=== PATIENT | female | born 1945 | race Caucasian/White ===

== ENCOUNTER 2021-02-16 08:57 | Outpatient (CLI) | payer MEDICARE, BC | END 2021-02-16 08:58 | disposition home or self-care (01) | LOC: BICMAMMO 08:57 | PROVIDERS: ATTEND Nurse Practitioner Family | DX: Z12.31 Encounter for screening mammogram for malignant neoplasm of breast (principal) | CPT/HCPCS: 77063; 77067 ==

== ENCOUNTER 2021-02-23 07:57 | Outpatient (CLI) | payer MEDICARE, BC ==
[2021-02-23] MEDS ORDERED: Iopamidol 370 76% 100 ML VIAL ONE (11:17)
== END 2021-02-23 07:58 | disposition home or self-care (01) ==
LOC: CT 07:57
PROVIDERS: ATTEND Internal Medicine Cardiovascular Disease
DX: I65.23 Occlusion and stenosis of bilateral carotid arteries (principal); I65.03 Occlusion and stenosis of bilateral vertebral arteries
CPT/HCPCS: 70498

== ENCOUNTER 2021-03-11 08:00 | Inpatient (IN) | payer MEDICARE, BC ==
[2021-03-15] MEDS ORDERED: ceFAZolin 2 GM/DEX 5% 100 ML BAG ONE (08:13)
[2021-03-15] MEDS ORDERED: Fentanyl 100 MCG/2 ML VIAL ONE (08:39)
[2021-03-15] MEDS ORDERED: Protamine Sulfate 50 MG/5 ML VIAL ONE (09:46)
[2021-03-15] MEDS ORDERED: Heparin 5,000 UNITS/ML VIAL ONE (09:46)
[2021-03-15] MEDS ORDERED: Dexamethasone 4 mg/ml Vial ONE (09:46)
[2021-03-15] MEDS ORDERED: EPINEPHrine 1 MG/ML AMP ONE (09:46)
[2021-03-15] MEDS ORDERED: Bupivacaine PF 0.5% 30 ML VIAL ONE (09:46)
[2021-03-15] MEDS ORDERED: PROPOFOL 200 MG/20 ML VIAL ONE (10:21)
[2021-03-15] MEDS ORDERED: Rocuronium Bromide 10 MG/ML (10ML VIAL) ONE (10:21)
[2021-03-15] MEDS ORDERED: Dexamethasone 20 MG/5 ML VIAL ONE (10:21)
[2021-03-15] MEDS ORDERED: Lidocaine 1% PF 5 ML VIAL ONE (10:21)
[2021-03-15] MEDS ORDERED: Ondansetron PF 4 MG/2 ML Vial ONE (10:21)
[2021-03-15] MEDS ORDERED: Glycopyrrolate 0.2 MG/ML 5 ML SYRINGE ONE (10:21)
[2021-03-15] MEDS ORDERED: DOPamine 400 MG/D5W 250 ML 250 ML ONE (10:35)
[2021-03-15] MEDS ORDERED: hydrALAZINE 20 MG/ML VIAL SLOW IVP PRN (12:59)
[2021-03-15] MEDS ORDERED: Acetaminophen 325 MG TAB PO PRN (12:59)
[2021-03-15] MEDS ORDERED: Nitroglycerin 50 MG/250 ML BOT 250 ML IVPB PRN (12:59)
[2021-03-15] MEDS ORDERED: Ondansetron PF 4 MG/2 ML Vial IVP PRN (12:59)
[2021-03-15] MEDS ORDERED: traMADol HCl 50 MG TAB PO PRN ×2 (12:59)
[2021-03-15] MEDS ORDERED: Promethazine HCl 25 MG/ML VIAL IM PRN (12:59)
[2021-03-15] MEDS ORDERED: Phenylephrine 40 MG in Sodium Chloride 0.9% 250 ML 250 ML IVPB PRN (12:59)
[2021-03-15 13:42] VITALS: BP 87/43; BMI 26.9
[2021-03-15] MEDS: Sodium Chloride 0.9% 1,000 ML IV SCH ×2 (13:58→23:05)
[2021-03-15] MEDS ORDERED: FLU VACC QS2021-22(65YR UP)/PF 240 MCG/0.7 ML SYRINGE IM ONE (15:15)
[2021-03-15] MEDS: Insulin Regular 300 UNITS/3 ML VIAL SC PRN ×2 (16:40→20:10)
[2021-03-15] MEDS: ceFAZolin Sodium/D5W 2 GM in Premix Bag 1 BAG IVPB SCH ×2 (16:41→23:05)
[2021-03-15] MEDS ORDERED: LEVOCETIRIZINE DIHYDROCHLORIDE PO SCH (21:00)
[2021-03-15] MEDS ORDERED: Atorvastatin Calcium 20 MG TAB PO SCH (21:00)
[2021-03-16] MEDS: ceFAZolin Sodium/D5W 2 GM in Premix Bag 1 BAG IVPB SCH (07:46)
[2021-03-16 08:25] VITALS: TEMP 98.5
[2021-03-16] MEDS: Sodium Chloride 0.9% 1,000 ML IV SCH (09:20)
== END 2021-03-16 09:21 | disposition home or self-care (01) | DRG 36 ==
LOC: SURG A 03-15 07:57 → CCU 03-15 13:09
PROVIDERS: ADMIT Thoracic Surgery (Cardiothoracic Vascular Surgery); ATTEND Thoracic Surgery (Cardiothoracic Vascular Surgery)
PROC: 037K3DZ Dilation of Right Internal Carotid Artery with Intraluminal Device, Percutaneous Approach (ICD-10-PCS; principal; 2021-03-15)
DX: I65.23 Occlusion and stenosis of bilateral carotid arteries (principal); I25.10 Atherosclerotic heart disease of native coronary artery without angina pectoris; I10 Essential (primary) hypertension; E78.2 Mixed hyperlipidemia; E11.9 Type 2 diabetes mellitus without complications; Z90.710 Acquired absence of both cervix and uterus; Z90.49 Acquired absence of other specified parts of digestive tract; Z95.1 Presence of aortocoronary bypass graft; Z87.891 Personal history of nicotine dependence; Z79.84 Long term (current) use of oral hypoglycemic drugs; Z79.82 Long term (current) use of aspirin
CPT/HCPCS: 36416; 76000; 90471; 90662; 94640; C1725; C1876; C1884; G0008; J0171; J1100; J1265; J1642; J1644; J1815; J2405; J2704; J2720; J3010; J7050; J7620; S0020

== ENCOUNTER 2021-04-27 10:50 | Outpatient (CLI) | payer MEDICARE, BC ==
[2021-04-27 17:56] LABS: SARS-CoV-2 PCR by NAA Not Detected (NotDetected)
== END 2021-04-27 10:51 | disposition home or self-care (01) ==
LOC: LABBT 10:50
PROVIDERS: ATTEND Thoracic Surgery (Cardiothoracic Vascular Surgery)
DX: Z01.812 Encounter for preprocedural laboratory examination (principal); I65.21 Occlusion and stenosis of right carotid artery; Z20.822 Contact with and (suspected) exposure to COVID-19
CPT/HCPCS: U0003; U0005

== ENCOUNTER 2021-04-27 11:45 | Inpatient (IN) | payer MEDICARE, BC ==
[2021-04-28] MEDS ORDERED: Fentanyl 250 MCG/5 ML VIAL ONE (13:38)
[2021-04-28] MEDS ORDERED: Protamine Sulfate 50 MG/5 ML VIAL ONE (13:44)
[2021-04-28] MEDS ORDERED: EPINEPHrine 1 MG/ML AMP ONE (13:44)
[2021-04-28] MEDS ORDERED: Dexamethasone 4 mg/ml Vial ONE (13:44)
[2021-04-28] MEDS ORDERED: Heparin 5,000 UNITS/ML VIAL ONE (13:44)
[2021-04-28] MEDS ORDERED: Bupivacaine PF 0.5% 30 ML VIAL ONE (13:44)
[2021-04-28] MEDS ORDERED: Midazolam HCl 2 mg/2 ml Vial ONE (13:48)
[2021-04-28] MEDS ORDERED: Lidocaine 1% MPF 2 ML VIAL ONE (13:55)
[2021-04-28] MEDS ORDERED: CEFAZOLIN 1 GM VIAL ONE (13:58)
[2021-04-28] MEDS ORDERED: PROPOFOL 200 MG/20 ML VIAL ONE (14:25)
[2021-04-28] MEDS ORDERED: Rocuronium Bromide 10 MG/ML (10ML VIAL) ONE (14:25)
[2021-04-28] MEDS ORDERED: Lidocaine 1% PF 5 ML VIAL ONE (14:25)
[2021-04-28] MEDS ORDERED: Ondansetron PF 4 MG/2 ML Vial ONE (14:25)
[2021-04-28] MEDS ORDERED: Dexamethasone 20 MG/5 ML VIAL ONE (14:25)
[2021-04-28] MEDS ORDERED: SUGAMMADEX SODIUM 200 MG/2 ML VIAL ONE (15:13)
[2021-04-28] MEDS ORDERED: hydrALAZINE 20 MG/ML VIAL SLOW IVP PRN (15:28)
[2021-04-28] MEDS ORDERED: traMADol HCl 50 MG TAB PO PRN (15:28)
[2021-04-28] MEDS ORDERED: Acetaminophen 325 MG TAB PO PRN (15:28)
[2021-04-28] MEDS ORDERED: Phenylephrine 40 MG in Sodium Chloride 0.9% 250 ML 250 ML IVPB PRN (15:28)
[2021-04-28] MEDS ORDERED: Fentanyl 100 MCG/2 ML VIAL SLOW IVP PRN (15:28)
[2021-04-28] MEDS ORDERED: Ondansetron PF 4 MG/2 ML Vial IVP PRN (15:28)
[2021-04-28] MEDS ORDERED: Nitroglycerin 0.4 MG TAB (25 Tab Bottle) SL PRN (15:30)
[2021-04-28] MEDS: Sodium Chloride 0.9% 1,000 ML IV SCH (17:33)
[2021-04-28 18:40] VITALS: BMI 27.5
[2021-04-28] MEDS ORDERED: Atorvastatin Calcium 20 MG TAB PO SCH (21:00)
[2021-04-28] MEDS ORDERED: BIOTIN 10000 MCG PO SCH (21:00)
[2021-04-28] MEDS ORDERED: Magnesium Oxide 400 MG TAB PO SCH (21:00)
[2021-04-28] MEDS: CEFAZOLIN 2 GM, Admixture Fee 1 EACH in Sodium Chloride 0.9% 100 ML IVPB SCH (23:00)
[2021-04-29 06:40] LABS: #Lymphocytes 0.9 thou/uL (1.20-3.40); #Monocytes 0.3 thou/uL (0.11-0.59); #Neutrophils 7.4 thou/uL (1.40-6.50); %Basophils 0.1 % (0.0-1.0); %Eosinophils 0.2 % (0.0-10.0); %Monocytes 3.9 % (0.0-10.0); %Neutrophils 85.8 % (42.0-75.0); Hemoglobin 10.5 g/dL (12.0-16.0); Mean Corpuscular HGB CONC 32.6 g/dL (32.0-36.0); Mean Corpuscular Hemoglobin 31.2 pg (27.0-31.0); Mean Corpuscular Volume 95.8 fL (78.0-98.0); Mean Platelet Volume 6.8 fL (7.4-10.4); Platelet Count 177 thou/uL (130-400); RBC Distribution Width 12.6 % (11.5-14.5); Red Blood Cell (RBC) Count 3.37 mill/uL (4.20-5.40); White Blood Cell (WBC) Count 8.6 thou/uL (4.8-10.8)
[2021-04-29 07:09] LABS: Anion Gap 14 mmol/L (10-20); BUN (Urea Nitrogen) 28 mg/dL (9.8-20.1); Calc. Creatinine Clearance 38 mL/min (70-130); Calcium 8.5 mg/dL (7.8-10.44); Carbon Dioxide 20 mmol/L (23-31); Chloride 109 mmol/L (98-107); Glucose 146 mg/dL (83-110); Phosphorus 4.6 mg/dL (2.3-4.7); Potassium 4.1 mmol/L (3.5-5.1); Sodium 139 mmol/L (136-145)
[2021-04-29] MEDS: Sodium Chloride 0.9% 1,000 ML IV SCH (07:30)
[2021-04-29] MEDS: CEFAZOLIN 2 GM, Admixture Fee 1 EACH in Sodium Chloride 0.9% 100 ML IVPB SCH (07:30)
[2021-04-29] MEDS ORDERED: Amlodipine 5 MG TAB PO SCH (09:00)
[2021-04-29] MEDS ORDERED: Lisinopril 20 MG TAB PO SCH (09:00)
[2021-04-29] MEDS ORDERED: Aspirin 81 mg Enteric Coated Tablet PO SCH (09:00)
[2021-04-29] MEDS ORDERED: Hydrochlorothiazide 25 MG TAB PO SCH (09:00)
[2021-04-29] MEDS ORDERED: Allopurinol 300 MG TAB PO SCH (09:00)
[2021-04-29] MEDS ORDERED: Citalopram 20 MG TAB PO SCH (09:00)
[2021-04-29] MEDS ORDERED: Calcium Carbonate 600 MG TAB PO SCH (09:00)
[2021-04-29] MEDS ORDERED: Multivitamin W/ Minerals 1 TAB PO SCH (09:00)
[2021-04-29] MEDS ORDERED: Clopidogrel Bisulfate 75 MG TAB PO SCH (09:00)
[2021-04-29 09:33] VITALS: TEMP 99
[2021-04-29] MEDS ORDERED: metFORMIN 850 MG TAB PO SCH (17:00)
[2021-04-29] MEDS ORDERED: LEVOCETIRIZINE DIHYDROCHLORIDE 5 MG PO SCH (21:00)
[2021-04-29] MEDS ORDERED: Metoprolol Tartrate 50 MG TAB PO SCH (21:00)
== END 2021-04-29 09:15 | disposition home or self-care (01) | DRG 36 ==
LOC: T4-A 04-28 11:24 → CCU 04-28 17:17
PROVIDERS: ADMIT Thoracic Surgery (Cardiothoracic Vascular Surgery); ATTEND Thoracic Surgery (Cardiothoracic Vascular Surgery)
PROC: 037L3DZ Dilation of Left Internal Carotid Artery with Intraluminal Device, Percutaneous Approach (ICD-10-PCS; principal; 2021-04-28)
DX: I65.23 Occlusion and stenosis of bilateral carotid arteries (principal); I25.10 Atherosclerotic heart disease of native coronary artery without angina pectoris; I10 Essential (primary) hypertension; E78.2 Mixed hyperlipidemia; E11.9 Type 2 diabetes mellitus without complications; Z20.822 Contact with and (suspected) exposure to COVID-19; F41.9 Anxiety disorder, unspecified; Z95.1 Presence of aortocoronary bypass graft; Z90.710 Acquired absence of both cervix and uterus; Z90.49 Acquired absence of other specified parts of digestive tract; Z79.02 Long term (current) use of antithrombotics/antiplatelets; Z79.84 Long term (current) use of oral hypoglycemic drugs; Z79.899 Other long term (current) drug therapy; Z79.82 Long term (current) use of aspirin
CPT/HCPCS: 76000; 80048; 83735; 84100; 85025; 94640; C1725; C1776; C1876; C1884; J0171; J0690; J1100; J1642; J1644; J2250; J2405; J2704; J2720; J3010; J3490; J7620; S0020